=== PATIENT | female | born 2000 | race Caucasian/White ===

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

== ENCOUNTER 2021-02-17 07:29 | Emergency (ER) | payer MEDICAID ==
[~2021-02-17] VITALS: Ht 165.1 cm; Wt 48.1 kg
[~2021-02-17 07:29] MED LIST: ONDA-188 SL
[2021-02-17 07:37] VITALS: BP 117/67
--- NOTE | 2021-02-17 07:42 | NUR ---
PT AMBULATED TO BED
--- NOTE | 2021-02-17 08:03 | NUR ---
20 Y/O FEMALE C/O NAUSEA/VOMITING/DIARRHEA STARTED TODAY. PT STATES SHE WAS DRINKING THIS AM, FELT "TIPSY" DENIES ANY RECENT FEVER. PT ADMITS TO DRINKING MULTIPLE SHOTS OF HARD LIQUIOR. PT DENIES ANY PAIN AT THIS TIME RX: IBUPROFEN WITH NO RELIEF MEDHX: DENIES NKA
[2021-02-17] MEDS ORDERED: ONDANSETRON 4 MG ODT PO ONE (08:10)
[2021-02-17] MEDS ORDERED: LOPERAMIDE 2 MG CAP PO ONE (08:25)
[2021-02-17] MEDS ORDERED: LOPE-289 PO (08:32)
[2021-02-17] MEDS ORDERED: ONDA4TAB PO (08:32)
[2021-02-17 09:09] VITALS: BP 139/74
--- NOTE | 2021-02-17 09:09 | NUR ---
Patient discharged with v/s stable. Written and verbal after care instructions given and explained. Patient alert, oriented and verbalized understanding of instructions. Ambulatory with steady gait. All questions addressed prior to discharge. ID band removed. Patient advised to follow up with PMD. Rx of ZOFRAN AND IMODIUM given. Patient educated on indication of medication including possible reaction and side effects. Opportunity to ask questions provided and answered.
== END 2021-02-17 09:09 | disposition home or self-care (01) ==
LOC: MED 07:29
DX: R11.2 Nausea with vomiting, unspecified (principal); R19.7 Diarrhea, unspecified; Z79.899 Other long term (current) drug therapy
CPT/HCPCS: 81002; 81025; 99283; Q0162

== ENCOUNTER 2021-05-10 03:33 | Emergency (ER) | payer MEDICAID ==
[~2021-05-10] VITALS: Ht 165.1 cm; Wt 49.9 kg
[~2021-05-10 03:33] MED LIST changes: +LOPE-289 PO; +ONDA4TAB PO
[2021-05-10 03:54] VITALS: BP 103/69
--- NOTE | 2021-05-10 03:56 | NUR ---
to chair ambulatory
--- NOTE | 2021-05-10 04:05 | NUR ---
seen and examined by jamel
[2021-05-10] MEDS ORDERED: ONDANSETRON 4 MG ODT PO ONE (04:10)
[2021-05-10] MEDS ORDERED: IBUP-2213 PO (04:22)
[2021-05-10] MEDS ORDERED: ONDA8TAB87 PO (04:22)
[2021-05-10 04:30] VITALS: BP 103/69
--- NOTE | 2021-05-10 04:30 | NUR ---
Patient discharged with v/s stable. Written and verbal after care instructions given and explained. Patient alert, oriented and verbalized understanding of instructions. Ambulatory with steady gait. All questions addressed prior to discharge. ID band removed. Patient advised to follow up with PMD. Rx of motrin, zofran given. Patient educated on indication of medication including possible reaction and side effects. Opportunity to ask questions provided and answered.
== END 2021-05-10 03:54 | disposition home or self-care (01) ==
LOC: MED 03:33
DX: R11.2 Nausea with vomiting, unspecified (principal); R10.13 Epigastric pain
CPT/HCPCS: 81002; 81025; 99283; Q0162

== ENCOUNTER 2021-07-07 09:57 | Emergency (ER) | payer MEDICAID ==
[~2021-07-07] VITALS: Ht 162.6 cm; Wt 52.2 kg
[~2021-07-07 09:57] MED LIST changes: +IBUP-2213 PO; +ONDA8TAB87 PO
[2021-07-07 10:03] VITALS: BP 93/65
[2021-07-07] MEDS ORDERED: ONDANSETRON 4 MG/2 ML VIAL IVP ONE (10:15)
[2021-07-07] MEDS ORDERED: MORPHINE SULFATE 4 MG/ML SYR IVP ONE (10:15)
[2021-07-07] MEDS ORDERED: NACL 0.9% 1,000 ML IV ONE (10:15)
--- NOTE | 2021-07-07 10:30 | NUR ---
LAB WORK COLLECTED HANDED TO JAMES
[2021-07-07 10:37] LABS: BASOPHILS % (AUTO) 0.2 % (0.0-2.0); HEMATOCRIT 40.8 % (36-48); HEMOGLOBIN 13.9 g/dL (12.0-16.0); LYMPHOCYTES # (AUTO) 0.7 K/uL (2.5-16.5); LYMPHOCYTES % (AUTO) 5.6 % (20.5-51.1); MEAN CORPUSCULAR HEMOGLOBIN 32 pg (27-31); MEAN CORPUSCULAR HGB CONC 34 g/dL (33-37); MEAN CORPUSCULAR VOLUME 93.1 fL (80-94); MONOCYTES # (AUTO) 1.1 K/uL (0.8-1.0); MONOCYTES % (AUTO) 8.4 % (1.7-9.3); NEUTROPHILS # (AUTO) 11.4 K/uL (1.8-7.7); NEUTROPHILS % (AUTO) 85.8 % (42.2-75.2); PLATELET COUNT (AUTO) 449 K/uL (140-450); RED BLOOD CELL COUNT(AUTO) 4.38 MIL/uL (4.20-5.40); RED CELL DISTRIBUTION WIDTH 13.9 % (11.6-13.7); WHITE BLOOD COUNT (AUTO) 13.3 K/uL (4.5-11.0)
--- NOTE | 2021-07-07 10:53 | NUR ---
20 y/o female, c/o abd pain and n&v that started last night, pt points to epigastric area for source of pain and describes it as a burning sensation with dysuria. denies diarrhea or constipation. skin is pink/warm/dry. a&o x4 with even and steady gait. lungs clear bl, heart rate even and regular. pt denies hematuria, urinary frequency or retention, or anyone sick in the household with the same symptoms. pt denies any fever, cp, sob, or cough at this time. pt states pain is 10/10 at this time. vss. patient positioned for comfort. hob elevated. bed down. ermd made aware of pt. pmh: denies nka med: denies
[2021-07-07 11:01] LABS: ALBUMIN 4.5 g/dL (3.4-5.0); ANION GAP 22.4 (8-16); CARBON DIOXIDE 24.7 mmol/L (21-32); POTASSIUM 4.1 mmol/L (3.5-5.1); TOTAL BILIRUBIN 0.7 mg/dL (0.0-1.0)
--- NOTE | 2021-07-07 11:29 | NUR ---
ice chips given for po challenge. symptoms are starting to resolve per pt
[2021-07-07] MEDS ORDERED: ONDA-188 SL (12:17)
--- NOTE | 2021-07-07 12:29 | NUR ---
urine cup collected and given to yazmin aguiar
--- NOTE | 2021-07-07 12:29 | NUR ---
po challenge tolerated at this time
--- NOTE | 2021-07-07 12:31 | NUR ---
Patient discharged with v/s stable. Written and verbal after care instructions given and explained. Patient alert, oriented and verbalized understanding of instructions. Ambulatory with steady gait. All questions addressed prior to discharge. ID band removed. Patient advised to follow up with PMD. Rx of zofran (sent) given. Patient educated on indication of medication including possible reaction and side effects. Opportunity to ask questions provided and answered. work note given
[2021-07-07 12:44] VITALS: BP 93/65
--- NOTE | 2021-07-07 12:46 | NUR ---
pt tolerated crackers and juice po
[2021-07-07 13:21] LABS: BARBITURATE, URINE NEGATIVE ng/ml (NEG <=200); BENZODIAZEPINE, URINE NEGATIVE ng/mL (NEG <=200); CANNABINOID, URINE POSITIVE ng/mL (NEG <=50); COCAINE, URINE NEGATIVE ng/mL (NEG <=300); OPIATE, URINE POSITIVE ng/mL (NEG <=2000); PHENCYCLIDINE SCREEN,URINE NEGATIVE ng/mL (NEG <=25)
== END 2021-07-07 12:44 | disposition home or self-care (01) ==
LOC: MED 09:57
DX: R11.2 Nausea with vomiting, unspecified (principal); R10.13 Epigastric pain; R30.0 Dysuria; Z79.899 Other long term (current) drug therapy
CPT/HCPCS: 36415; 80053; 80305; 81002; 81025; 83690; 85025; 96361; 96374; 96375; 99284; J2270; J2405; J7030

== ENCOUNTER 2021-12-10 13:22 | Emergency (ER) | payer MEDICAID ==
[~2021-12-10] VITALS: Ht 165.1 cm; Wt 51.8 kg
[2021-12-10 13:37] VITALS: BP 140/71
--- NOTE | 2021-12-10 13:45 | NUR ---
21YR OLD FEMALE BIB SELF C/O GEN WEAKNESS/ NUMBESS. NUMBNESS AND "PINS AND NEEDLES" IN FINGERS . ANXIOUS WHILE DRIVING. DENIES CP OR SOB. DENIES ANY PAIN. NO DISTRESS NOTED. PT IS IN GOWN. SKIN WARM AND DRY AND INTACT. NKDA NO HX
[2021-12-10] MEDS ORDERED: KETOROLAC 60 MG/2 ML VIAL IM ONE (14:10)
--- NOTE | 2021-12-10 14:27 | NUR ---
PT IN ROOM 1
--- NOTE | 2021-12-10 14:27 | NUR ---
ER AT BEDSIDE
[2021-12-10] MEDS ORDERED: IBUP-2213 PO (14:55)
[2021-12-10] MEDS ORDERED: ATA25 PO (14:55)
--- NOTE | 2021-12-10 15:15 | NUR ---
The patient's care was reviewed and supervised by Mary Castrejon RN.
== END 2021-12-10 15:06 | disposition home or self-care (01) ==
LOC: MED 13:22
DX: M79.10 Myalgia, unspecified site (principal); F41.9 Anxiety disorder, unspecified; F12.90 Cannabis use, unspecified, uncomplicated
CPT/HCPCS: 96372; 99283; J1885

== ENCOUNTER 2022-02-25 11:25 | Emergency (ER) | payer MEDICAID ==
[~2022-02-25] VITALS: Ht 165.1 cm; Wt 50.3 kg
[~2022-02-25 11:25] MED LIST changes: +ATA25 PO
[2022-02-25 12:40] VITALS: BP 115/60
--- NOTE | 2022-02-25 12:47 | NUR ---
PT W/C ASSISTED TO BED 4.
[2022-02-25] MEDS ORDERED: NACL 0.9% 1,000 ML IV SCH (13:25)
[2022-02-25] MEDS ORDERED: FAMOTIDINE 20 MG/2 ML VIAL IVP ONE (13:25)
[2022-02-25] MEDS ORDERED: ONDANSETRON 4 MG/2 ML VIAL IVP ONE (13:25)
[2022-02-25] MEDS ORDERED: KETOROLAC 30 MG/ML VIAL IVP ONE (13:25)
[2022-02-25 14:04] LABS: BASOPHILS # (AUTO) 0.1 K/uL (0.00-0.22); BASOPHILS % (AUTO) 0.6 % (0.0-2.0); EOSINOPHILS % (AUTO) 0.1 % (0.0-4.0); HEMATOCRIT 40.1 % (36-48); HEMOGLOBIN 13.4 g/dL (12.0-16.0); LYMPHOCYTES # (AUTO) 0.8 K/uL (2.5-16.5); LYMPHOCYTES % (AUTO) 4.4 % (20.5-51.1); MEAN CORPUSCULAR HEMOGLOBIN 31 pg (27-31); MEAN CORPUSCULAR HGB CONC 33 g/dL (33-37); MEAN CORPUSCULAR VOLUME 92.4 fL (80-94); MONOCYTES # (AUTO) 1.2 K/uL (0.8-1.0); NEUTROPHILS % (AUTO) 88.9 % (42.2-75.2); PLATELET COUNT (AUTO) 507 K/uL (140-450); RED BLOOD CELL COUNT(AUTO) 4.34 MIL/uL (4.20-5.40); RED CELL DISTRIBUTION WIDTH 14.3 % (11.6-13.7); WHITE BLOOD COUNT (AUTO) 19.2 K/uL (4.5-11.0)
[2022-02-25] MEDS ORDERED: DEXT 5% /NACL 0.9% 1,000 ML IV ONE (15:05)
[2022-02-25 15:24] LABS: ALBUMIN 4.3 g/dL (3.4-5.0); ANION GAP 24.5 (8-16); CARBON DIOXIDE 18.5 mmol/L (21-32); CREATININE 0.9 mg/dL (0.6-1.3); TOTAL BILIRUBIN 0.4 mg/dL (0.0-1.0)
[2022-02-25] MEDS ORDERED: POTASSIUM CHL 40 MEQ/ D5-1/2NS 1,000 ML IV ONE (15:38)
[2022-02-25 15:40] LABS: APPEARANCE,URINE CLEAR (CLEAR); BILIRUBIN,URINE NEGATIVE (NEGATIVE); BLOOD, URINE 2+ (NEGATIVE); COLOR,URINE YELLOW (YELLOW); LEUKOCYTE ESTERASE ,URINE NEGATIVE (NEGATIVE); NITRITE, URINE NEGATIVE (NEGATIVE); UGLUCOSE NEGATIVE (NEGATIVE)
[2022-02-25 16:14] LABS: RBC,URINE 0-5 /HPF (0-5); WBC,URINE 0-5 /HPF (0-5)
[2022-02-25] MEDS ORDERED: ONDA-188 SL (16:35)
[2022-02-25 16:49] VITALS: BP 111/67
== END 2022-02-25 16:49 | disposition home or self-care (01) ==
LOC: MED 11:25
DX: R10.10 Upper abdominal pain, unspecified (principal)
CPT/HCPCS: 36415; 76705; 80053; 81001; 81025; 83690; 85025; 93005; 96361; 96374; 96375; 99285; J1885; J2405; J3490; Q0092; J7030

== ENCOUNTER 2022-09-25 04:25 | Emergency (ER) | payer MEDICAID ==
[~2022-09-25] VITALS: Ht 165.1 cm; Wt 54.4 kg
[2022-09-25 04:30] VITALS: BP 114/77
--- NOTE | 2022-09-25 04:30 | NUR ---
to bed ambulatory
--- NOTE | 2022-09-25 04:46 | NUR ---
RECEIVED IN BED 4 WITH C/O VAGINAL BLEEDING, DESCRIBED HEAVY WITH CLOTS. LMP 08/03/22
[2022-09-25 05:19] LABS: APPEARANCE,URINE CLEAR (CLEAR); BILIRUBIN,URINE NEGATIVE (NEGATIVE); BLOOD, URINE NEGATIVE (NEGATIVE); COLOR,URINE YELLOW (YELLOW); LEUKOCYTE ESTERASE ,URINE NEGATIVE (NEGATIVE); NITRITE, URINE NEGATIVE (NEGATIVE); UGLUCOSE NEGATIVE (NEGATIVE)
[2022-09-25] MEDS ORDERED: ONDANSETRON 4 MG ODT PO ONE (05:25)
[2022-09-25 05:37] LABS: BASOPHILS % (AUTO) 0.6 % (0.0-2.0); EOSINOPHILS # (AUTO) 0.1 K/uL (0-0.4); EOSINOPHILS % (AUTO) 1.7 % (0.0-4.0); HEMOGLOBIN 12.9 g/dL (12.0-16.0); LYMPHOCYTES # (AUTO) 1.3 K/uL (2.5-16.5); MEAN CORPUSCULAR HEMOGLOBIN 32 pg (27-31); MEAN CORPUSCULAR HGB CONC 34 g/dL (33-37); MONOCYTES # (AUTO) 0.7 K/uL (0.8-1.0); MONOCYTES % (AUTO) 10.4 % (1.7-9.3); NEUTROPHILS # (AUTO) 4.7 K/uL (1.8-7.7); NEUTROPHILS % (AUTO) 68.3 % (42.2-75.2); PLATELET COUNT (AUTO) 376 K/uL (140-450); RED BLOOD CELL COUNT(AUTO) 4.09 MIL/uL (4.20-5.40); RED CELL DISTRIBUTION WIDTH 14.1 % (11.6-13.7); WHITE BLOOD COUNT (AUTO) 6.9 K/uL (4.5-11.0)
[2022-09-25 05:58] LABS: ALBUMIN 4.1 g/dL (3.4-5.0); ANION GAP 13.8 (8-16); CREATININE 0.7 mg/dL (0.6-1.3); POTASSIUM 3.8 mmol/L (3.5-5.1); TOTAL BILIRUBIN 0.7 mg/dL (0.0-1.0)
[2022-09-25] MEDS ORDERED: METOCLOPRAMIDE 10 MG TAB PO ONE (06:25)
[2022-09-25] MEDS ORDERED: KETOROLAC 30 MG/ML VIAL IM ONE (06:25)
[2022-09-25] MEDS ORDERED: BEN10 PO (08:20)
[2022-09-25] MEDS ORDERED: METO-485 PO (08:20)
[2022-09-25] MEDS ORDERED: NAPR-1704 PO (08:20)
[2022-09-25 10:35] VITALS: BP 115/76
--- NOTE | 2022-09-25 10:35 | NUR ---
Patient discharged with v/s stable. Written and verbal after care instructions given and explained. Patient alert, oriented and verbalized understanding of instructions. Ambulatory with steady gait. All questions addressed prior to discharge. ID band removed. Patient advised to follow up with PMD. Rx of REGLAN, BENTYL, NAPROSYN given. Patient educated on indication of medication including possible reaction and side effects. Opportunity to ask questions provided and answered.
== END 2022-09-25 10:35 | disposition home or self-care (01) ==
LOC: MED 04:25
DX: R11.2 Nausea with vomiting, unspecified (principal); R19.7 Diarrhea, unspecified; N83.201 Unspecified ovarian cyst, right side; Z79.899 Other long term (current) drug therapy; Z79.1 Long term (current) use of non-steroidal anti-inflammatories (NSAID)
CPT/HCPCS: 36415; 76705; 76856; 80053; 81003; 81025; 83690; 84702; 85025; 93976; 96372; 99285; J1885; J8597; Q0162; Q0163

== ENCOUNTER 2022-11-15 10:22 | Inpatient (IN) | payer MEDICAID ==
[~2022-11-15] VITALS: Ht 157.5 cm; Wt 52.2 kg
[~2022-11-15 10:22] MED LIST changes: +BEN10 PO; +METO-485 PO; +NAPR-1704 PO
[2022-11-15 10:33] VITALS: BP 127/88; PULSE 107; RESP 17; TEMP 97.4; O2SAT 99
--- NOTE | 2022-11-15 10:44 | NUR ---
Note mary in EDM - 11/15/22 at 1115 by [email or web address] Pt [address], was sleeping on sidewalk when ems was called by bystanders. Pt has no complaints. Pt is a/o x 4, vss, no ss of acute distress, breathing equal and unlabored. Pt admits to using meth, last use yesterday. Pt on monitor and has been seen by
[2022-11-15] MEDS ORDERED: ONDANSETRON 4 MG/2 ML VIAL IVP ONE ×2 (10:50→13:40)
[2022-11-15] MEDS ORDERED: NACL 0.9% 1,000 ML IV ONE (10:50)
[2022-11-15] MEDS ORDERED: DICYCLOMINE HCL LIQUID 20 MG, ALUMINUM HYD/MAG/SIMETHICONE 30 ML, LIDOCAINE VISCOUS 2% ... PO ONE ×3 (10:50)
[2022-11-15] MEDS ORDERED: DICYCLOMINE HCL LIQUID 10 MG/5 ML UDC ONE (10:57)
[2022-11-15] MEDS ORDERED: ALUMINUM HYD/MAG/SIMETHICONE 30 ML UDC ONE (10:57)
--- NOTE | 2022-11-15 11:15 | NUR ---
First contact with pt. Bibs for abd pain and nausea. Pt states she has been continuosly throwing up since this morning and had abd burning. Pt is a/o x 4, vss, no ss of acute distress, breathing equal and unlabored, speech clear. Mid level has seen pt.
--- NOTE | 2022-11-15 11:20 | NUR ---
Pt aware of need for urine sample. Given specimen cup.
[2022-11-15] MEDS ORDERED: diphenhydrAMINE 50 MG/ML VIAL IVP ONE (11:25)
[2022-11-15] MEDS ORDERED: METOCLOPRAMIDE 10 MG/2 ML INJ VIAL IVP ONE (11:25)
[2022-11-15] MEDS ORDERED: KETOROLAC 30 MG/ML VIAL IVP ONE (11:25)
[2022-11-15 11:52] LABS: BASOPHILS % (AUTO) 0.2 % (0.0-2.0); EOSINOPHILS % (AUTO) 0.3 % (0.0-4.0); HEMATOCRIT 40.8 % (36-48); HEMOGLOBIN 13.5 g/dL (12.0-16.0); LYMPHOCYTES # (AUTO) 1.1 K/uL (2.5-16.5); LYMPHOCYTES % (AUTO) 8.3 % (20.5-51.1); MEAN CORPUSCULAR HEMOGLOBIN 31 pg (27-31); MEAN CORPUSCULAR HGB CONC 33 g/dL (33-37); MEAN CORPUSCULAR VOLUME 94.5 fL (80-94); MONOCYTES # (AUTO) 0.6 K/uL (0.8-1.0); MONOCYTES % (AUTO) 4.3 % (1.7-9.3); NEUTROPHILS # (AUTO) 11.9 K/uL (1.8-7.7); NEUTROPHILS % (AUTO) 86.9 % (42.2-75.2); PLATELET COUNT (AUTO) 444 K/uL (140-450); RED BLOOD CELL COUNT(AUTO) 4.32 MIL/uL (4.20-5.40); RED CELL DISTRIBUTION WIDTH 13.8 % (11.6-13.7); WHITE BLOOD COUNT (AUTO) 13.7 K/uL (4.8-10.8)
[2022-11-15 11:58] LABS: ALBUMIN 4.5 g/dL (3.4-5.0); ANION GAP 18.8 (8-16); CARBON DIOXIDE 23.5 mmol/L (21-32); CREATININE 0.9 mg/dL (0.6-1.3); POTASSIUM 4.3 mmol/L (3.5-5.1); TOTAL BILIRUBIN 0.5 mg/dL (0.0-1.0)
--- NOTE | 2022-11-15 13:00 | NUR ---
Pt still nauseated. Pt tolerated meds well but states she still feels the same sensation in stomach. Pt is a/o x 4, vss, no ss of acute distress, breathing equal and unlabored, speech clear.
[2022-11-15] MEDS ORDERED: BEN10 PO (13:30)
--- NOTE | 2022-11-15 13:51 | NUR ---
tx consent form signed by pt/pa
--- NOTE | 2022-11-15 15:33 | NUR ---
Report given to PAULA Stern at [facility]. Pt a/o x 4, vss, no ss of acute distress, breathing equal and unlabored, speech clear.
[2022-11-15] MEDS ORDERED: MORPHINE SULFATE 4 MG/ML SYR IVP ONE (15:50)
--- NOTE | 2022-11-15 16:18 | NUR ---
Mother and daughter updated on plan of care and trans at length. All questions answered.
[2022-11-15] MEDS ORDERED: MAG SULF 2000 MG/WATER PREMIX 50 ML IV PRN (18:30)
[2022-11-15] MEDS ORDERED: LORazepam 2 MG/ML VIAL IVP PRN (18:30)
[2022-11-15] MEDS ORDERED: DOCUSATE SODIUM 100 MG GELCAP PO PRN (18:30)
[2022-11-15] MEDS ORDERED: ZOLPIDEM 10 MG TAB PO PRN (18:30)
[2022-11-15] MEDS ORDERED: ACETAMINOPHEN 325 MG TAB PO PRN (18:30)
[2022-11-15] MEDS ORDERED: ONDANSETRON 4 MG/2 ML VIAL IVP PRN (18:30)
[2022-11-15] MEDS ORDERED: MORPHINE SULFATE 2 MG/ML SYR IVP PRN (18:30)
[2022-11-15] MEDS: NACL 0.9% 1,000 ML IV SCH (18:45)
--- NOTE | 2022-11-15 19:20 | NUR ---
received report from andres MITCHELL.
--- NOTE | 2022-11-15 19:20 | NUR ---
pt resting on bed. a/ox4. not in distress. on monitor. with 7/10 abdominal pain. given morphine 1607hrs. placed on moderate high back rest.
--- NOTE | 2022-11-15 19:40 | NUR ---
image cd verified with pt with the charge nurse and gave to the pt.
[2022-11-15 20:10] VITALS: BP 101/50; PULSE 65; PULSE 73; RESP 18; TEMP 99; O2SAT 100
--- NOTE | 2022-11-15 20:20 | NUR ---
RECEIVED REPORT FROM ER NURSE MENDEZ FOR CONTINUITY OF CARE. PATIENT IS A&O X4. PATIENT IS ON ROOM AIR, BREATHING IS NORMAL WITH SYMMETRICAL RISE AND FALL OF CHEST. IV IS A 20G RAC; RUNNING NS AT 100 ML/HR. PATIENT WAS ABLE TO AMBULATE FROM GURNEY TO BED INDEPENDENTLY. PATIENT IS SITTING IN SEMI-FOWLERS POSITION ON BED. BED IS IN LOWEST POSITION, WHEELS LOCKED, CALL LIGHT IN PLACE. WILL CONTINUE TO OBSERVE PATIENT.
--- NOTE | 2022-11-15 20:20 | NUR ---
Patient will be admitted to care of Dr. Carter. Admited to telemetry. Will go to room 121A. Belongings list completed. Report to jamey middleton. jamey middleton verbalized understanding and no further question.
--- NOTE | 2022-11-15 22:00 | NUR ---
PATIENT WAS GIVEN PAIN MEDICATIONS IN ER. REASSESSMENT REQUIRED AT 1232 AND 1707, BUT WAS NOT CHARTED IN ER; MEDICATIONS NOW D/C IN EMAR BUT STILL APPEARING ON STATUS BOARD. WILL INFORM DAY SHIFT NURSE IF MEDS STILL VISIBLE IN STATUS BOARD.
[2022-11-16] VITALS: BP 112/56; PULSE 70; PULSE 74; RESP 18; TEMP 98.5; O2SAT 98
--- NOTE | 2022-11-16 01:00 | NUR ---
LOOKED IN ON PATIENT. PATIENT WAS SLEEPING. BREATHING WAS NORMAL WITH SYMMETRICAL RISE AND FALL OF CHEST. WILL CONTINUE TO OBSERVE PATIENT.
--- NOTE | 2022-11-16 02:45 | NUR ---
PATIENT CALLED AND REQUESTED PAIN MEDICATION FOR 6/10 ABDOMINAL PAIN AT 0120. CHECKED PATIENT'S VITALS (BP 108/58, HR 76) AND CHART; MORPHINE WAS APPROPRIATE FOR 6/10 PAIN. MEDICATION WAS ADMINISTERED SUCCESSFULLY WITH NO ISSUES WITH IV. REASSESSED PAIN AT 0231, PATIENT STATED PAIN WAS AT ABOUT 3/10; BUT TOLERABLE. WILL CONTINUE TO OBSERVE PATIENT.
[2022-11-16 04:00] VITALS: BP 102/57; PULSE 64; PULSE 72; RESP 18; TEMP 97.2; O2SAT 98
[2022-11-16] MEDS: NACL 0.9% 1,000 ML IV SCH ×2 (05:14→14:54)
--- NOTE | 2022-11-16 05:15 | NUR ---
PATIENT IS AWAKE, SITTING IN HIGH-FOWLERS POSITION WITH CELL PHONE OUT. PATIENT STATED SHE FEELS OKAY. BREATHING IS NORMAL WITH SYMMETRICAL RISE AND FALL OF CHEST. WILL CONTINUE TO OBSERVE PATIENT.
--- NOTE | 2022-11-16 05:30 | NUR ---
WAS ABLE TO GO INTO DISCONTINUED PAIN MEDS FROM ER AND PUT "NON-ADMINISTERED" FOR REASSESSMENT. MEDICATIONS NO LONGER APPEARING ON STATUS BOARD.
[2022-11-16 05:57] LABS: BASOPHILS % (AUTO) 0.1 % (0.0-2.0); EOSINOPHILS % (AUTO) 0.1 % (0.0-4.0); HEMOGLOBIN 12.5 g/dL (12.0-16.0); LYMPHOCYTES # (AUTO) 1.4 K/uL (2.5-16.5); MEAN CORPUSCULAR HEMOGLOBIN 31 pg (27-31); MEAN CORPUSCULAR HGB CONC 33 g/dL (33-37); MONOCYTES # (AUTO) 1.3 K/uL (0.8-1.0); MONOCYTES % (AUTO) 10.6 % (1.7-9.3); NEUTROPHILS # (AUTO) 9.9 K/uL (1.8-7.7); NEUTROPHILS % (AUTO) 78.2 % (42.2-75.2); PLATELET COUNT (AUTO) 396 K/uL (140-450); RED CELL DISTRIBUTION WIDTH 13.7 % (11.6-13.7); WHITE BLOOD COUNT (AUTO) 12.6 K/uL (4.8-10.8)
[2022-11-16 06:14] LABS: ANION GAP 14.1 (8-16); CARBON DIOXIDE 24.1 mmol/L (21-32); CREATININE 0.7 mg/dL (0.6-1.3); POTASSIUM 3.2 mmol/L (3.5-5.1)
--- NOTE | 2022-11-16 07:30 | NUR ---
ENDORSED TO DAY SHIFT NURSE DAVID FOR CONTINUITY OF CARE. PATIENT IS STABLE.
[2022-11-16 08:00] VITALS: BP 106/60; PULSE 60; PULSE 73; RESP 18; TEMP 97.5; O2SAT 100
--- NOTE | 2022-11-16 09:43 | NUR ---
PATIENT HAS BEEN SCREENED AND CATEGORIZED HIGH NUTRITION RISK. PATIENT WILL BE SEEN WITHIN 1-2 DAYS OF ADMISSION. 11/15/22-11/17/[address] REFERRAL RECEIVED FOR VOMITING > 3 DAYS
[2022-11-16] MEDS ORDERED: POTASSIUM CHLORIDE 10 MEQ TABER PO SCH (10:30)
[2022-11-16 15:44] LABS: APPEARANCE,URINE SL CLOUDY (CLEAR); BILIRUBIN,URINE NEGATIVE (NEGATIVE); BLOOD, URINE NEGATIVE (NEGATIVE); COLOR,URINE YELLOW (YELLOW); LEUKOCYTE ESTERASE ,URINE NEGATIVE (NEGATIVE); NITRITE, URINE NEGATIVE (NEGATIVE); UGLUCOSE NEGATIVE (NEGATIVE)
[2022-11-16 15:55] LABS: BARBITURATE, URINE NEGATIVE ng/ml (NEG <=200); BENZODIAZEPINE, URINE NEGATIVE ng/mL (NEG <=200); CANNABINOID, URINE POSITIVE ng/mL (NEG <=50); COCAINE, URINE NEGATIVE ng/mL (NEG <=300); OPIATE, URINE POSITIVE ng/mL (NEG <=2000); PHENCYCLIDINE SCREEN,URINE NEGATIVE ng/mL (NEG <=25)
[2022-11-16 16:00] VITALS: BP 101/50; PULSE 64; RESP 18; TEMP 97.5; O2SAT 100
--- NOTE | 2022-11-16 17:25 | NUR ---
11/16/22 RD INITIAL ASSESSMENT COMPLETED. PLEASE REFER TO NUTRITION ASSESSMENT UNDER CARE ACTIVITY FOR ESTIMATED NUTRITIONAL NEEDS. 1. CONTINUE REGULAR DIET TOLERATED 2. MONITOR PO INTAKE AND GI SYMPTOMS 3. RD TO FOLLOW-UP 2-3 DAYS, HIGH RISK GABRIEL PIERSON RD
--- NOTE | 2022-11-16 19:30 | NUR ---
RECEIVED REPORT FROM NURSE HERNANDEZ FOR CONTINUITY OF CARE. PATIENT IS A&O X4. PATIENT IS ON ROOM AIR, BREATHING IS NORMAL WITH SYMMETRICAL RISE AND FALL OF CHEST. IV IS A 20G RAC; RUNNING NS AT 100 ML/HR. PATIENT IS SITTING IN SEMI-FOWLERS POSITION ON BED. BED IS IN LOWEST POSITION, WHEELS LOCKED, CALL LIGHT IN PLACE. WILL CONTINUE TO OBSERVE PATIENT.
[2022-11-16 20:00] VITALS: BP 97/66; PULSE 64; RESP 18; TEMP 97.6; O2SAT 98
--- NOTE | 2022-11-16 23:00 | NUR ---
PATIENT COMPLAINED ABOUT SWELLING IN HER RIGHT HAND. LOOKED AT RIGHT HAND AND NOTICED FINGERS APPEARED TO HAVE MINIMAL SWELLING. STOPPED IV; FLUSHED LINE. PATIENT SAID IV HURT A LITTLE BIT WHEN FLUSHED. DISCONNECTED PATIENT FROM LINE. PLACED PILLOW UNDER PATIENT'S HAND FOR ELEVATION.
[2022-11-17] MEDS: NACL 0.9% 1,000 ML IV SCH ×2 (00:30→11:30)
--- NOTE | 2022-11-17 01:00 | NUR ---
LOOKED IN ON PATIENT. PATIENT WAS SLEEPING; BREATHING WAS NORMAL WITH SYMMETRICAL RISE AND FALL OF CHEST. WILL CONTINUE TO OBSERVE PATIENT.
[2022-11-17 04:00] VITALS: BP 96/55; PULSE 60; RESP 18; TEMP 96.9; O2SAT 98
--- NOTE | 2022-11-17 04:30 | NUR ---
HAD DIFFICULTY WITH PATIENT'S IV. PUMP KEPT READING ERROR MESSAGE. DISCONNECTED PATIENT AND TRIED MULTIPLE BOLUSES AND TWO SEPARATE PUMPS, BUT ERROR MESSAGE KEPT APPEARING. CHANGED OUT IV FLUID LINE FROM PUMP WITH NEW LINE; IV IS NOW RUNNING WITHOUT ERROR MESSAGE. PATIENT IS SLEEPING, LYING SEMI-FOWLERS IN BED. BREATHING IS NORMAL WITH SYMMETRICAL RISE AND FALL OF CHEST. WILL CONTINUE TO OBSERVE PATIENT. Addendum: 11/17/22 at 0543 by William Kinney RN WRONG PATIENT.
--- NOTE | 2022-11-17 04:30 | NUR ---
LOOKED IN ON PATIENT. PATIENT WAS AWAKE. ASKED PATIENT IF I COULD LOOK AT HER RIGHT HAND. LOOKED AT HAND, NO SIGN OF SWELLING WAS VISIBLE. FLUSHED IV LINE; IV LINE IS PATENT WITH NO SIGN OF LEAKAGE. HOOKED PATIENT BACK UP TO IV AND TOLD PATIENT TO LET ME KNOW IF SHE FEELS ANY DISCOMFORT IN HER ARM OR HANDS. PATIENT VERBALIZED UNDERSTANDING. WILL CONTINUE TO OBSERVE PATIENT.
[2022-11-17 05:28] LABS: BASOPHILS % (AUTO) 0.3 % (0.0-2.0); EOSINOPHILS # (AUTO) 0.1 K/uL (0-0.4); HEMATOCRIT 36.9 % (36-48); HEMOGLOBIN 12.4 g/dL (12.0-16.0); LYMPHOCYTES # (AUTO) 1.9 K/uL (2.5-16.5); LYMPHOCYTES % (AUTO) 19.4 % (20.5-51.1); MEAN CORPUSCULAR HEMOGLOBIN 32 pg (27-31); MEAN CORPUSCULAR HGB CONC 34 g/dL (33-37); MEAN CORPUSCULAR VOLUME 94.3 fL (80-94); MONOCYTES # (AUTO) 0.8 K/uL (0.8-1.0); MONOCYTES % (AUTO) 7.9 % (1.7-9.3); NEUTROPHILS % (AUTO) 71.4 % (42.2-75.2); PLATELET COUNT (AUTO) 363 K/uL (140-450); RED BLOOD CELL COUNT(AUTO) 3.91 MIL/uL (4.20-5.40); RED CELL DISTRIBUTION WIDTH 13.6 % (11.6-13.7); WHITE BLOOD COUNT (AUTO) 9.8 K/uL (4.8-10.8)
[2022-11-17 05:59] LABS: ANION GAP 14.7 (8-16); CARBON DIOXIDE 23.4 mmol/L (21-32); CREATININE 0.8 mg/dL (0.6-1.3); POTASSIUM 4.1 mmol/L (3.5-5.1)
--- NOTE | 2022-11-17 07:35 | NUR ---
ENDORSED TO DAY SHIFT NURSE DAVID FOR CONTINUITY OF CARE. PATIENT IS STABLE.
[2022-11-17 08:00] VITALS: BP 100/60; PULSE 67; RESP 18; TEMP 97.4; O2SAT 96
[2022-11-17] MEDS ORDERED: ESCI20TA PO (12:14)
[2022-11-17] MEDS ORDERED: OMEP20EC11 PO (12:14)
--- NOTE | 2022-11-17 15:03 | NUR ---
DISCHARGE [place] IN STABLE CONDITION TO HOME PER PCP ORDER. DISCHARGE INSTRUCTION GIVE VIA [employer] APPLICATION PACKAGING SPECIALIST #[id number]. PATIENT AWARE THAT SHE NEED CALL PHARMACY FOR PRESCRIPTION. DISCHARGE CONSENT SIGN, IV ACCES & WRIST BAND REMOVE PRIOR WALK PATIENT OUT THE FACILITY. Addendum: 11/17/22 at 1549 by Lise Aparicio RN ABOVE ARE WRONG CHART FOR WRONG PATIENT. DISCHARGE [place] IN STABLE CONDITION TO HOME PER PCP ORDER. DISCHARGE INSTRUCTION GIVE, AND PATIENT AWARE THAT SHE NEED CALL PHARMACY FOR PRESCRIPTION. DISCHARGE CONSENT SIGN, IV ACCES & WRIST BAND REMOVE PRIOR WALK PATIENT OUT THE FACILITY. 4 DAYS OFF WORK NOTE ISSUED AFTER CONTACT
[2022-11-17 15:16] VITALS: BP 100/60; PULSE 67; RESP 18; TEMP 97.4
== END 2022-11-17 15:50 | disposition home or self-care (01) | DRG 254 ==
LOC: MED 10:22 → MTU 18:45
PROVIDERS: ADMIT Family Medicine; ATTEND Family Medicine
DX: K58.9 Irritable bowel syndrome, unspecified (principal); R65.10 Systemic inflammatory response syndrome (SIRS) of non-infectious origin without acute organ dysfunction; E87.6 Hypokalemia; F12.90 Cannabis use, unspecified, uncomplicated; F43.9 Reaction to severe stress, unspecified; Z71.51 Drug abuse counseling and surveillance of drug abuser
CPT/HCPCS: 36415; 76705; 80048; 80053; 80305; 81003; 83690; 83735; 85025; 87081; 96361; 96374; 96375; 96376; 99285; J1200; J1885; J2270; J2405; J2765; Q0092

== ENCOUNTER 2023-04-27 03:35 | Emergency (ER) | payer MEDICAID ==
[~2023-04-27] VITALS: Ht 162.6 cm; Wt 52.6 kg
[~2023-04-27 03:35] MED LIST changes: -ATA25 PO; +ESCI20TA PO; -IBUP-2213 PO; -LOPE-289 PO; -METO-485 PO; -NAPR-1704 PO; +OMEP20EC11 PO; -ONDA-188 SL; -ONDA4TAB PO; -ONDA8TAB87 PO
[2023-04-27 03:55] VITALS: BP 129/92; PULSE 99; RESP 17; TEMP 96.7; O2SAT 100
[2023-04-27] MEDS ORDERED: NACL 0.9% 1,000 ML IV ONE (04:05)
[2023-04-27] MEDS ORDERED: HALOPERIDOL IM 5 MG/ML VIAL IVP ONE (04:05)
[2023-04-27 04:35] LABS: BASOPHILS # (AUTO) 0.1 K/uL (0.00-0.22); BASOPHILS % (AUTO) 0.9 % (0.0-2.0); EOSINOPHILS # (AUTO) 0.2 K/uL (0-0.4); EOSINOPHILS % (AUTO) 1.7 % (0.0-4.0); HEMATOCRIT 39.7 % (36-48); HEMOGLOBIN 13.6 g/dL (12.0-16.0); LYMPHOCYTES # (AUTO) 2.7 K/uL (2.5-16.5); LYMPHOCYTES % (AUTO) 26.7 % (20.5-51.1); MEAN CORPUSCULAR HEMOGLOBIN 32 pg (27-31); MEAN CORPUSCULAR HGB CONC 34 g/dL (33-37); MONOCYTES # (AUTO) 0.7 K/uL (0.8-1.0); MONOCYTES % (AUTO) 6.8 % (1.7-9.3); NEUTROPHILS # (AUTO) 6.5 K/uL (1.8-7.7); NEUTROPHILS % (AUTO) 63.9 % (42.2-75.2); PLATELET COUNT (AUTO) 432 K/uL (140-450); RED BLOOD CELL COUNT(AUTO) 4.22 MIL/uL (4.20-5.40); RED CELL DISTRIBUTION WIDTH 14.5 % (11.6-13.7); WHITE BLOOD COUNT (AUTO) 10.2 K/uL (4.8-10.8)
[2023-04-27 04:49] LABS: ALBUMIN 4.2 g/dL (3.4-5.0); ANION GAP 14.5 (8-16); CALCIUM 9.2 mg/dL (8.5-10.1); CARBON DIOXIDE 28.1 mmol/L (21-32); CREATININE 0.8 mg/dL (0.6-1.3); POTASSIUM 3.6 mmol/L (3.5-5.1); TOTAL BILIRUBIN 0.5 mg/dL (0.0-1.0); TOTAL PROTEIN, SERUM 8.7 g/dL (6.4-8.2)
[2023-04-27] MEDS ORDERED: LORazepam 2 MG/ML VIAL IVP ONE (05:15)
[2023-04-27] MEDS ORDERED: ONDANSETRON 4 MG/2 ML VIAL IVP ONE (05:20)
[2023-04-27 05:25] VITALS: BP 129/92; PULSE 99; RESP 17; TEMP 96.7; O2SAT 100
[2023-04-27] MEDS ORDERED: ONDA-188 SL (06:03)
== END 2023-04-27 06:05 | disposition home or self-care (01) ==
LOC: MED 03:35
DX: A08.4 Viral intestinal infection, unspecified (principal); Z79.899 Other long term (current) drug therapy
CPT/HCPCS: 36415; 80053; 85025; 96361; 96374; 96375; 99284; J1630; J2405; J7030

== ENCOUNTER 2023-07-16 16:34 | Emergency (ER) | payer MEDICAID ==
[~2023-07-16] VITALS: Ht 165.1 cm; Wt 49.9 kg
[~2023-07-16 16:34] MED LIST changes: +ONDA-188 SL
[2023-07-16 17:01] VITALS: BP 110/67; PULSE 98; RESP 19; TEMP 98.1; O2SAT 99
[2023-07-16 17:38] VITALS: O2SAT 99
[2023-07-16] MEDS: NACL 0.9% 1,000 ML IV SCH (18:13)
[2023-07-16] MEDS: diphenhydrAMINE 50 MG/ML VIAL IM ONE (18:17)
[2023-07-16] MEDS: METOCLOPRAMIDE 10 MG/2 ML INJ VIAL IVP ONE (18:20)
[2023-07-16 18:27] LABS: BASOPHILS # (AUTO) 0.1 K/uL (0.00-0.22); BASOPHILS % (AUTO) 0.8 % (0.0-2.0); EOSINOPHILS % (AUTO) 0.3 % (0.0-4.0); HEMATOCRIT 39.5 % (36-48); HEMOGLOBIN 13.5 g/dL (12.0-16.0); LYMPHOCYTES # (AUTO) 0.8 K/uL (2.5-16.5); LYMPHOCYTES % (AUTO) 5.3 % (20.5-51.1); MEAN CORPUSCULAR HEMOGLOBIN 32 pg (27-31); MEAN CORPUSCULAR HGB CONC 34 g/dL (33-37); MEAN CORPUSCULAR VOLUME 93.2 fL (80-94); MONOCYTES # (AUTO) 0.7 K/uL (0.8-1.0); MONOCYTES % (AUTO) 4.8 % (1.7-9.3); NEUTROPHILS # (AUTO) 13.8 K/uL (1.8-7.7); NEUTROPHILS % (AUTO) 88.8 % (42.2-75.2); PLATELET COUNT (AUTO) 451 K/uL (140-450); RED BLOOD CELL COUNT(AUTO) 4.24 MIL/uL (4.20-5.40); RED CELL DISTRIBUTION WIDTH 13.5 % (11.6-13.7); WHITE BLOOD COUNT (AUTO) 15.5 K/uL (4.8-10.8)
[2023-07-16 18:38] LABS: ANION GAP 17.9 (8-16); CALCIUM 9.5 mg/dL (8.5-10.1); CARBON DIOXIDE 24.2 mmol/L (21-32); CREATININE 0.9 mg/dL (0.6-1.3); POTASSIUM 3.1 mmol/L (3.5-5.1)
[2023-07-16 18:42] LABS: APPEARANCE,URINE SL CLOUDY (CLEAR); BILIRUBIN,URINE NEGATIVE (NEGATIVE); BLOOD, URINE 3+ (NEGATIVE); COLOR,URINE YELLOW (YELLOW); LEUKOCYTE ESTERASE ,URINE NEGATIVE (NEGATIVE); NITRITE, URINE NEGATIVE (NEGATIVE); PH,URINE 8.5 (5.0-9.0); PROTEIN,URINE NEGATIVE (NEGATIVE); UGLUCOSE NEGATIVE (NEGATIVE); UROBILINOGEN,URINE 0.2 EU/dL (0.2 - 1)
[2023-07-16 18:47] LABS: ALBUMIN 4.9 g/dL (3.4-5.0); BILIRUBIN,DIRECT 0.1 mg/dL (0.0-0.3); TOTAL BILIRUBIN 0.7 mg/dL (0.0-1.0); TOTAL PROTEIN, SERUM 8.3 g/dL (6.4-8.2)
[2023-07-16 18:52] LABS: AMPHETAMINE, URINE NEGATIVE ng/ml (NEG <=1000); BARBITURATE, URINE NEGATIVE ng/ml (NEG <=200); BENZODIAZEPINE, URINE NEGATIVE ng/mL (NEG <=200); CANNABINOID, URINE POSITIVE ng/mL (NEG <=50); COCAINE, URINE NEGATIVE ng/mL (NEG <=300); OPIATE, URINE NEGATIVE ng/mL (NEG <=2000); PHENCYCLIDINE SCREEN,URINE NEGATIVE ng/mL (NEG <=25)
[2023-07-16 18:57] VITALS: TEMP 98.1
[2023-07-16 18:59] LABS: BACTERIA,URINE None Seen /HPF (None Seen); MUCUS,URINE 1+ /LPF (None Seen); RBC,URINE 0-5 /HPF (0-5); SQUAMOUS EPITHELIAL CELL,UR 0-3 (FEW) /LPF (0-3 (FEW)); TRICHOMONAS,URINE None Seen /HPF (None Seen); URINE AMORPHOUS PHOSPHATES 3+ /HPF (None Seen); WBC,URINE 0-5 /HPF (0-5); YEAST,URINE None Seen /HPF (None Seen)
[2023-07-16] MEDS: HALOPERIDOL IM 5 MG/ML VIAL IM ONE (19:43)
[2023-07-16] MEDS: POTASSIUM CHLORIDE 20% 40 MEQ/15 ML UDC PO ONE (19:43)
[2023-07-16 19:44] VITALS: O2SAT 100
[2023-07-16] MEDS: diphenhydrAMINE 50 MG/ML VIAL IVP ONE ×2 (20:03→20:53)
[2023-07-16] MEDS: KETOROLAC 30 MG/ML VIAL IVP ONE (20:04)
[2023-07-16] MEDS: LORazepam 2 MG/ML VIAL IVP ONE (20:52)
[2023-07-16] MEDS ORDERED: ONDA-188 SL (21:28)
[2023-07-16 21:40] VITALS: BP 99/46; PULSE 71; RESP 17; O2SAT 98
== END 2023-07-16 21:40 | disposition home or self-care (01) ==
LOC: MED 16:34
DX: R11.2 Nausea with vomiting, unspecified (principal); R10.13 Epigastric pain; E87.6 Hypokalemia; F12.90 Cannabis use, unspecified, uncomplicated; Z79.899 Other long term (current) drug therapy
CPT/HCPCS: 36415; 76856; 80048; 80076; 80305; 81001; 81025; 83690; 84703; 85025; 96361; 96372; 96374; 96375; 96376; 99285; J1200; J1630; J1885; J2060; J2765; J7030; Q0092

== ENCOUNTER 2023-10-10 13:25 | Emergency (ER) | payer MEDICAID ==
[~2023-10-10] VITALS: Ht 165.1 cm; Wt 49.9 kg
[2023-10-10 13:26] VITALS: BP 113/65; PULSE 98; RESP 18; TEMP 97.6; O2SAT 97
[2023-10-10] MEDS: FLUORESCEIN OPTH STRIP 1 MG OP ONE (14:00)
[2023-10-10] MEDS: TETRACAINE HCL/PF 0.5% OPTH 4 ML BTL OP ONE (14:00)
[2023-10-10] MEDS ORDERED: POLY10DR5 OP (14:53)
[2023-10-10] MEDS ORDERED: IBUP-2213 PO (14:53)
[2023-10-10 15:03] VITALS: BP 141/65; PULSE 80; RESP 18; TEMP 97.3; O2SAT 97
== END 2023-10-10 15:04 | disposition home or self-care (01) ==
LOC: MED 13:25
DX: H10.9 Unspecified conjunctivitis (principal); Z79.899 Other long term (current) drug therapy
CPT/HCPCS: 99283

== ENCOUNTER 2024-01-21 17:51 | Emergency (ER) | payer MEDICAID ==
[~2024-01-21] VITALS: Ht 165.1 cm; Wt 52.3 kg
[~2024-01-21 17:51] MED LIST changes: +IBUP-2213 PO; +POLY10DR5 OP
[2024-01-21 18:33] VITALS: BP 122/72; PULSE 84; RESP 22; TEMP 97.5; O2SAT 99
[2024-01-21 19:00] VITALS: O2SAT 99
[2024-01-21] MEDS: HALOPERIDOL IM 5 MG/ML VIAL IM ONE (19:15)
[2024-01-21] MEDS: NACL 0.9% 1,000 ML IV ONE ×2 (19:38→22:30)
[2024-01-21 19:57] LABS: ALBUMIN 4.6 g/dL (3.4-5.0); ANION GAP 17.6 (8-16); BASOPHILS # (AUTO) 0.1 K/uL (0.00-0.22); BASOPHILS % (AUTO) 0.4 % (0.0-2.0); CALCIUM 9.6 mg/dL (8.5-10.1); CREATININE 0.9 mg/dL (0.6-1.3); EOSINOPHILS % (AUTO) 0.1 % (0.0-4.0); HEMATOCRIT 40.4 % (36-48); HEMOGLOBIN 13.6 g/dL (12.0-16.0); LYMPHOCYTES # (AUTO) 0.9 K/uL (2.5-16.5); LYMPHOCYTES % (AUTO) 5.3 % (20.5-51.1); MEAN CORPUSCULAR HEMOGLOBIN 32 pg (27-31); MEAN CORPUSCULAR HGB CONC 34 g/dL (33-37); MEAN CORPUSCULAR VOLUME 93.9 fL (80-94); MONOCYTES # (AUTO) 0.9 K/uL (0.8-1.0); MONOCYTES % (AUTO) 5.2 % (1.7-9.3); NEUTROPHILS # (AUTO) 14.8 K/uL (1.8-7.7); PLATELET COUNT (AUTO) 383 K/uL (140-450); POTASSIUM 3.6 mmol/L (3.5-5.1); RED BLOOD CELL COUNT(AUTO) 4.31 MIL/uL (4.20-5.40); RED CELL DISTRIBUTION WIDTH 13.4 % (11.6-13.7); TOTAL BILIRUBIN 0.9 mg/dL (0.0-1.0); TOTAL PROTEIN, SERUM 8.1 g/dL (6.4-8.2); WHITE BLOOD COUNT (AUTO) 16.6 K/uL (4.8-10.8)
[2024-01-21] MEDS: LORazepam 2 MG/ML VIAL IVP ONE (20:15)
[2024-01-21 21:07] LABS: BILIRUBIN,URINE NEGATIVE (NEGATIVE); BLOOD, URINE 3+ (NEGATIVE); COLOR,URINE YELLOW (YELLOW); LEUKOCYTE ESTERASE ,URINE NEGATIVE (NEGATIVE); NITRITE, URINE NEGATIVE (NEGATIVE); PROTEIN,URINE TRACE (NEGATIVE); UGLUCOSE NEGATIVE (NEGATIVE); UROBILINOGEN,URINE 0.2 EU/dL (0.2 - 1)
[2024-01-21 21:09] LABS: APPEARANCE,URINE SLIGHTLY CLOUDY (CLEAR)
[2024-01-21 21:12] LABS: BACTERIA,URINE 1+ /HPF (None Seen); MUCUS,URINE None Seen /LPF (None Seen); SQUAMOUS EPITHELIAL CELL,UR 4-10 (MOD) /LPF (0-3 (FEW)); WBC,URINE 0-5 /HPF (0-5)
[2024-01-21] MEDS ORDERED: HALOPERIDOL IM 5 MG/ML VIAL ONE (21:12)
[2024-01-21] MEDS ORDERED: LORazepam 2 MG/ML VIAL ONE (21:13)
[2024-01-21 21:21] LABS: AMPHETAMINE, URINE NEGATIVE ng/ml (NEG <=1000); BARBITURATE, URINE NEGATIVE ng/ml (NEG <=200); BENZODIAZEPINE, URINE NEGATIVE ng/mL (NEG <=200)
[2024-01-21 21:22] LABS: CANNABINOID, URINE POSITIVE ng/mL (NEG <=50); COCAINE, URINE NEGATIVE ng/mL (NEG <=300); OPIATE, URINE NEGATIVE ng/mL (NEG <=2000); PHENCYCLIDINE SCREEN,URINE NEGATIVE ng/mL (NEG <=25)
[2024-01-21] MEDS: METOCLOPRAMIDE 10 MG/2 ML INJ VIAL IVP ONE (22:29)
[2024-01-21] MEDS: diphenhydrAMINE 50 MG/ML VIAL IVP ONE (22:30)
== END 2024-01-22 00:45 | disposition home or self-care (01) ==
LOC: MED 17:51
DX: R11.2 Nausea with vomiting, unspecified (principal); R10.84 Generalized abdominal pain; F12.10 Cannabis abuse, uncomplicated; Z79.899 Other long term (current) drug therapy; Z88.5 Allergy status to narcotic agent
CPT/HCPCS: 36415; 80053; 80305; 81001; 81025; 83690; 85025; 96361; 96372; 96374; 96375; 99284; J1200; J1630; J2060; J2765; J7030